=== PATIENT | female | born 1940 | race Caucasian/White ===

== ENCOUNTER 2016-03-20 18:45 | Emergency (ER) | payer SELFPAY ==
[~2016-03-20] VITALS: Ht 162.6 cm; Wt 71.0 kg
[2016-03-20 18:59] VITALS: Ht 162.6 cm; Wt 71.0 kg
[2016-03-20] MEDS ORDERED: SOD CHLORIDE 0.9% 2,000 ML IV STA (20:40)
--- NOTE | 2016-03-20 20:49 | ERD ---
ER Documentation Chief Complaint Date/Time DATE: 03/20/16 TIME: 20:47 Chief Complaint referred by pmd for high blood sugar HPI 75-year-old female who presents the emergency room with hyperglycemia. The patient stopped taking her metformin approximately 1 year ago. The patient went to her primary care physician 2 days ago and had a chemistry profile that showed significant hyperglycemia. She went to the doctor's office today. The patient was prescribed her metformin but sent to the emergency room because of hyperglycemia in the 700 range. The patient does describe some urinary frequency but otherwise states that she feels well. No fevers, chills, chest pain, shortness of breath, abdominal pain. ROS All systems reviewed and are negative except as per history of present illness. Allergies Allergies: Coded Allergies: No Known Drug Allergies (Verified Allergy, Unknown, 03/20/16) FmHx Family History: diabetes Physical Exam Vitals Vital Signs Date Time Temp Pulse Resp B/P Pulse Ox O2 Delivery O2 Flow Rate FiO2 03/20/16 18:59 97.6 62 20 180/80 96 Physical Exam General: Well developed, well nourished, no acute distress Head: Normocephalic, atraumatic. Eyes: Pupils equally reactive, EOM intact ENT: Moist mucous membranes Neck: Supple, no lymphadenopathy Respiratory: Lungs clear bilaterally, no distress Cardiovascular: RRR, no murmurs, rubs, or gallops Abdominal: Soft, non-tender, non-distended, no peritoneal signs : Deferred MSK: No edema, no unilateral swelling, 5/5 strength Neurologic: Alert and oriented, moving all extremities, normal speech, no focal weakness, no cerebellar signs Skin: No rash Psych: Normal mood Result Diagram: 03/20/16205003/20/162050 Results 24 hrs Laboratory Tests Test 03/20/16 19:02 03/20/16 20:40 03/20/16 20:51 03/20/16 20:54 Bedside Glucose 437mg/dL 379mg/dL Garrett Test N/A Arterial Blood Date Drawn 03/20/2016 9:00:59 PM Arterial Blood Gas Puncture Site VENOUS LINE Blood Gas Modality ROOM AIR Blood Gas Notified Time 03/20/2016 9:07:34 PM Blood Gas Notified Whom MG Blood Gas Specimen Source Blood venous Blood Gas Temperature 37.0C Carboxyhemoglobin 0.5% FiO2 21.0% Venous Blood Base Excess -1.3mmol/L Venous Blood HCO3 23.5mmol/L Venous Blood Methemoglobin 0.3% Venous Blood Oxygen Saturation 70.6mmHG Venous Blood Oxyhemoglobin 70.0% Venous Blood Total Hemoglobin 13.9g/dl Venous Blood pCO2 (Temp Corrected) 39.6mmHG Venous Blood pH 7.391 Venous Blood pO2 (Temp Corrected) 36.5mmHG Anion Gap 15 Basophils # 0.110^3/ul Basophils % 1.1% Blood Urea Nitrogen 24mg/dl Calcium Level 8.4mg/dl Carbon Dioxide Level 31mmol/L Chloride Level 87mmol/L Creatinine 1.08mg/dl Eosinophils # 0.210^3/ul Eosinophils % 3.2% Glucose Level 424mg/dl Hematocrit 42.5% Hemoglobin 14.5g/dl Lymphocytes # 1.810^3/ul Lymphocytes % 37.0% Mean Corpuscular Hemoglobin 26.9pg Mean Corpuscular Hemoglobin Concent 34.1g/dl Mean Corpuscular Volume 78.8fl Mean Platelet Volume 11.2fl Monocytes # 0.510^3/ul Monocytes % 9.7% Neutrophils # 2.310^3/ul Neutrophils % 48.8% Nucleated Red Blood Cells # 0.010^3/ul Nucleated Red Blood Cells % 0.0/100WBC Platelet Count 47352^3/UL Potassium Level 3.2mmol/L Red Blood Count 5.3910^6/ul Red Cell Distribution Width 12.8% Sodium Level 130mmol/L White Blood Count 4.710^3/ul Current Medications Medications (Trade) Dose Ordered Sig/Saira Route PRN Reason Start Time Stop Time Status Last Admin Dose Admin Sodium Chloride (NS) 2,000 ml @ 1,000 mls/hr Q2H STAT IV 03/20/16 20:40 03/20/16 22:39 03/20/16 20:49 Procedures/MDM LAB INTERPRETATION: Hyperglycemia without DKA MEDICAL DECISION MAKING: The patient has hyperglycemia likely secondary to medication noncompliance. Low clinical concern for diabetic ketoacidosis though screening would be appropriate given significant elevation of glucose. No evidence of hyperosmolar nonketotic coma. The patient is otherwise extremely well-appearing , no evidence of neurologic compromise. ER COURSE: Laboratory testing has ruled out diabetic ketoacidosis. Normal bicarb, no acidosis on venous blood gas. The patient continues to be well-appearing, no indication for insulin. The patient has been given her metformin and will be discharged with close primary care follow-up. I kept the patient and/or family informed of laboratory and diagnostic imaging results throughout the emergency room course. DISPOSITION PLAN: We discussed follow up with the patient's primary care doctor within 24 to 48 hours as needed. We also discussed return to the emergency room for worsening symptoms or worsening condition. Departure Diagnosis: Primary Impression: Hyperglycemia Condition: Stable RAKEL WAGNER MD Mar 20, 2016 20:49
[2016-03-20 21:07] LABS: MODE ROOM AIR; MetHgb Venous 0.3 %; Sample Type Blood venous; Venous COHb 0.5 %; Venous Total Hemglobin 13.9 g/dl
[2016-03-20 21:13] LABS: ADD SCAN DIFF NO
[2016-03-20 21:16] LABS: BASOPHIL # 0.1 10^3/ul (0.0-0.1); BASOPHILS % 1.1 % (0.0-2.0); EOSINOPHILS # 0.2 10^3/ul (0.0-0.5); EOSINOPHILS % 3.2 % (0.0-7.0); HEMATOCRIT 42.5 % (37.0-47.0); HEMOGLOBIN 14.5 g/dl (12.0-16.0); LYMPHOCYTES # 1.8 10^3/ul (0.8-2.9); MEAN CORPUSCULAR HEMOGLOBIN 26.9 pg (29.0-33.0); MEAN CORPUSCULAR HGB CONC 34.1 g/dl (32.0-37.0); MEAN CORPUSCULAR VOLUME 78.8 fl (82.0-101.0); MEAN PLATELET VOLUME 11.2 fl (7.4-10.4); MONOCYTE # 0.5 10^3/ul (0.3-0.9); MONOCYTES % 9.7 % (0.0-11.0); NEUTROPHIL # 2.3 10^3/ul (1.6-7.5); NEUTROPHILS % 48.8 % (39.0-77.0); PLATELET COUNT 242 10^3/UL (140-415); RED BLOOD COUNT 5.39 10^6/ul (4.20-5.40); RED CELL DISTRIBUTION WIDTH 12.8 % (11.5-14.5); WHITE BLOOD COUNT 4.7 10^3/ul (4.8-10.8)
[2016-03-20 21:29] LABS: POTASSIUM 3.2 mmol/L (3.5-5.1)
[2016-03-20 21:32] LABS: CREATININE 1.08 mg/dl (0.44-1.00)
[2016-03-20 21:33] LABS: CALCIUM 8.4 mg/dl (8.4-10.2)
[2016-03-20 21:59] VITALS: BP 152/75; PULSE 59; RESP 18
[2016-03-20 21:59] LABS: ADD UMIC YES; URINE BILIRUBIN (Dip) NEGATIVE (NEGATIVE); URINE BLOOD (Dip) 1+ (NEGATIVE); URINE COLOR LT. YELLOW (YELLOW); URINE GLUCOSE (Dip) >=1000 % (NEGATIVE); URINE KETONES (Dip) NEGATIVE (NEGATIVE); URINE LEUKOCYTE ESTERASE (Dip) NEGATIVE (NEGATIVE); URINE NITRITE (Dip) NEGATIVE (NEGATIVE); URINE TOTAL PROTEIN (Dip) NEGATIVE (NEGATIVE); URINE UROBILINOGEN (Dip) 0.2 E.U./dL (0.1-1.0)
[2016-03-20 22:06] LABS: SQUAMOUS EPITHELIAL CELL,UR RARE
== END 2016-03-20 22:13 | disposition home or self-care (01) ==
LOC: E/R 18:45
DX: E11.65 Type 2 diabetes mellitus with hyperglycemia (principal); I10 Essential (primary) hypertension
CPT/HCPCS: 36415; 80048; 81001; 81003; 82803; 82962; 85025; J7030